=== PATIENT | female | born 1980 | race African-American/Black ===

== ENCOUNTER 2023-09-06 18:49 | Emergency (ER) | payer SELFPAY ==
[~2023-09-06] VITALS: Ht 170.2 cm; Wt 85.0 kg
[2023-09-06 18:52] VITALS: O2SAT 99
[2023-09-06 19:19] VITALS: BP 117/86; PULSE 86; RESP 13; TEMP 98.6
[2023-09-06] MEDS ORDERED: CETI10TA6 MT (19:40)
[2023-09-06] MEDS ORDERED: EPIN0.3P3 IM (19:40)
== END 2023-09-06 20:01 | disposition home or self-care (01) ==
LOC: ER 18:49
DX: L50.9 Urticaria, unspecified (principal)
CPT/HCPCS: 99283